=== PATIENT | male | born 1950 | race Caucasian/White ===

== ENCOUNTER 2016-04-30 12:13 | Emergency (ER) | payer OTHER ==
[~2016-04-30] VITALS: Wt 72.2 kg
[2016-04-30] MEDS ORDERED: DIPHTH/TET/ACEL PERTUSS (ADULT) 0.5 ML VIAL IM* ONE (15:30)
[2016-04-30] MEDS ORDERED: IBUPROFEN 600 MG TAB PO ONE (15:30)
[2016-04-30] MEDS: LIDOCAINE 1% (MDV) 20 ML INJ SC ONE ×2 (15:36→15:37)
--- NOTE | 2016-04-30 16:01 | RADRPT ---
PROCEDURE: XR Left Thumb CLINICAL INDICATION: Trauma TECHNIQUE: AP, oblique, and lateral radiographs were submitted. COMPARISON: None FINDINGS: Osseous structures: Comminuted largely longitudinally oriented fractures are seen to the distal 2/3 of the distal phalanx of the left thumb. There is medial lateral splaying by approximately 2 mm. A punctate calcification is seen dorsal to the base of the distal phalanx. A spur is seen to extend off the dorsal aspect of the proximal phalanx distally Joint spaces: are well maintained, with no significant spurring, erosion or joint effusion evident. Soft tissues: appear unremarkable. IMPRESSION: 1. Comminuted fracture involving the distal 2/3 of the distal phalanx of the left thumb. 2. Tiny avulsion fragment projects dorsal to the base of the distal phalanx of the left thumb. 3. A spur extends dorsally off the distal aspect of the proximal phalanx. Physician Domonique Date Time Electronically viewed and signed by Physician Domonique on 04/30/2016 16:00 /
[2016-04-30] MEDS ORDERED: IBUP-1542 PO (16:08)
[2016-04-30] MEDS ORDERED: CEPH-443 PO (16:08)
--- NOTE | 2016-04-30 16:17 | ERD ---
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 BLEEDING CONTROLLED HPI This 66-year-old male presents with a crush injury to his left thumb with a electric welder today. Has a laceration on the pad. Denies restricted range of motion or weakness. Tetanus is not up-to-date. ROS All systems reviewed and are negative except as per history of present illness. Medications Home Meds Active Scripts Cephalexin* (Keflex*) 500 Mg Capsule, 500 MG PO QID for 7 Days, CAP Prov:NANDO PISANO MD 04/30/16 Ibuprofen* (Motrin*) 600 Mg Tab, 600 MG PO Q6, #20 TAB Prov:NANDO PISANO MD 04/30/16 PMhx/Soc Medical and Surgical Hx: pt denies Medical Hx, pt denies Surgical Hx Physical Exam Vitals Vital Signs Date Time Temp Pulse Resp B/P Pulse Ox O2 Delivery O2 Flow Rate FiO2 04/30/16 12:22 98.8 81 20 138/75 98 Physical Exam Const: [] Alert, [id number] Head: Atraumatic Eyes: Normal Conjunctiva ENT: Normal External Ears, Nose and Mouth. Neck: Full range of motion..~ No meningismus. Resp: Clear to auscultation bilaterally Cardio: Regular rate and rhythm, no murmurs Abd: Soft, non tender, non distended. Normal bowel sounds Skin: No petechiae or rashes Back: No midline or flank tenderness Ext: No cyanosis, or edema. On the pad of the left thumb there is approximately 1.5 cm laceration. There is active bleeding which is oozing. There is no restricted range of motion weakness or suggestion of tendon or neurologic deficits. Neur: Awake and alert Psych: Normal Mood and Affect Results 24 hrs Current Medications Medications (Trade) Dose Ordered Sig/Jackson Route PRN Reason Start Time Stop Time Status Last Admin Dose Admin Diphtheria/ Tetanus/Acell Pertussis (Adacel) 0.5 ml ONCE ONCE IM* 04/30/16 15:30 04/30/16 15:31 DC 04/30/16 15:33 Ibuprofen (Motrin) 600 mg ONCE ONCE PO 04/30/16 15:30 04/30/16 15:31 DC 04/30/16 15:32 Lidocaine (Xylocaine 1% (Mdv) 20 ml) 20 ml ONCE ONCE SC 04/30/16 15:30 04/30/16 15:31 DC Cephalexin (Keflex) 500 mg ONCE ONCE PO 04/30/16 16:30 04/30/16 16:31 UNV Procedures/MDM X-ray left thumb er 2V Interpreted by me: Bones: There is a comminuted tuft fracture of the left thumb Joints: No dislocation Foreign body: None per patient-comminuted fracture of the left thumb Procedure note-the left thumb laceration was irrigated copiously with Betadine normal saline. Departure Diagnosis: Primary Impression: Fracture Condition: Stable Patient Instructions: Fracture, Finger (Open) Referrals: LAKSHMI DONATO MD [facility] Hours: Sat-Sat 9:00 AM - 5:00 PM Additional Instructions: See orthopedist this week for evaluation. May need authorization from primary care doctor. There is a fracture in the area of laceration. NANDO PISANO MD Apr 30, 2016 16:17
[2016-04-30] MEDS ORDERED: CEPHALEXIN 500 MG CAP PO ONE (16:30)
[2016-04-30 16:45] VITALS: BP 130/84; PULSE 67; RESP 16; TEMP 97.7
== END 2016-04-30 16:47 | disposition home or self-care (01) ==
LOC: FTE 12:13
DX: S62.522A Displaced fracture of distal phalanx of left thumb, initial encounter for closed fracture (principal); W23.0XXA Caught, crushed, jammed, or pinched between moving objects, initial encounter; Y92.9 Unspecified place or not applicable; Z23 Encounter for immunization
CPT/HCPCS: 73140; 90471; 90715